=== PATIENT | female | born 1965 | race American Indian/Alaskan Native ===

== ENCOUNTER 2017-01-17 09:04 | Emergency (ER) | payer MEDICARE ==
[2017-01-17 09:47] LABS: Basophils % (Auto) 0.6 % (0.0-1.8); Eosinophils % (Auto) 2.9 % (0.0-4.3); Hematocrit 42.3 % (30.3-42.9); Hemoglobin 14.4 gm/dl (10.1-14.3); Mean Corpuscular HGB Conc 34 % (30-34); Mean Corpuscular Hemoglobin 31 pg (28-32); Mean Corpuscular Volume 90 fl (79-97); Platelet Count 258 K/mm3 (140-440); Red Blood Count 4.69 M/mm3 (3.65-5.03); Red Cell Distribution Width 12.9 % (13.2-15.2); White Blood Count 6.5 K/mm3 (4.5-11.0)
[2017-01-17 09:57] LABS: Bilirubin,Urine NEG (Negative); Blood,Urine NEG (Negative); Ketones,Urine TR mg/dL (Negative); Leukocyte Esterase,Urine NEG (Negative); Mucus,Urine FEW /HPF; Nitrite,Urine NEG (Negative); Protein,Urine <15 mg/dL mg/dL (Negative); Urobilinogen,Urine < 2.0 mg/dL (<2.0)
[2017-01-17 10:03] LABS: Alanine Aminotransferase 43 units/L (7-56); Albumin/Globulin Ratio 1.4 %; Anion Gap 20 mmol/L; BUN/Creatinine Ratio 17.27; Blood Urea Nitrogen 19 mg/dL (7-17); Calcium 9.5 mg/dL (8.4-10.2); Carbon Dioxide 25 mmol/L (22-30); Glucose 101 mg/dL (65-100); Lipase 39 units/L (13-60); Potassium 3.8 mmol/L (3.6-5.0); Sodium 145 mmol/L (137-145); Total Protein 6.9 g/dL (6.3-8.2)
[2017-01-17] MEDS ORDERED: NACL 0.9% 1000 ML 1,000 ML IV ONE (11:16)
[2017-01-17 11:31] LABS: Alkaline Phosphatase 88 units/L (35-129)
[2017-01-17] MEDS ORDERED: LIDOCAINE VISCOUS 2% PO ONE (11:50)
[2017-01-17] MEDS ORDERED: ALUM-MAG HYDROX-SIMETH 200-200-20MG/5ML PO ONE (11:50)
--- NOTE | 2017-01-17 11:53 | Emergency Department Report ---
ED Abdominal Pain HPI - General Chief Complaint: Abdominal Pain Stated Complaint: STOMACH HURT Time Seen by Provider: 01/17/17 11:15 Source: patient Mode of arrival: Ambulatory Limitations: No Limitations - History of Present Illness MD Complaint: abdominal pain -: Gradual Location: diffuse Radiation: none Migration to: no migration Severity scale (0 -10): 6 Quality: cramping Consistency: intermittent Improves With: nothing Worsens With: nothing Associated Symptoms: constipation. denies: nausea, vomiting, diarrhea, fever, chills, dysuria, hematemesis, hematochezia - Related Data Home Medications Medication Instructions Recorded Confirmed Last Taken Buprenorphine HCl/Naloxone HCl 1 film SL TID 10/04/15 10/04/15 10/04/15 08:00 [Suboxone 8 mg-2 mg SL Film] Previous Rx's Medication Instructions Recorded Last Taken Type Trazodone HCl 150 mg PO QHS #20 tablet 10/04/15 Unknown Rx buPROPion [Wellbutrin] 100 mg PO QDAY #30 tablet 10/04/15 Unknown Rx risperiDONE 1 mg PO BID #60 tablet 10/04/15 Unknown Rx Diclofenac Sodium 75 mg PO Q24HR #20 tablet. 01/17/17 Unknown Rx Allergies Allergy/AdvReac Type Severity Reaction Status Date / Time No Known Allergies Allergy Verified 01/17/17 09:08 ED Review of Systems ROS: Stated complaint: STOMACH HURT Other details as noted in HPI Constitutional: denies: chills, fever Eyes: denies: eye pain, eye discharge, vision change ENT: denies: ear pain, throat pain Respiratory: denies: cough, shortness of breath, wheezing Cardiovascular: denies: chest pain, palpitations Endocrine: no symptoms reported Gastrointestinal: denies: abdominal pain, nausea, diarrhea Genitourinary: denies: urgency, dysuria, discharge Musculoskeletal: denies: back pain, joint swelling, arthralgia Skin: denies: rash, lesions Neurological: denies: headache, weakness, paresthesias Psychiatric: denies: anxiety, depression Hematological/Lymphatic: denies: easy bleeding, easy bruising ED Past Medical Hx - Past Medical History Hx Hypertension: Yes Hx Psychiatric Treatment: Yes (BIPOLAR/ PARANOID SCHIZOPHRENIA / NARCOTIC ABUSE) - Surgical History Additional Surgical History: PARTIAL HYSTERECTOMY - Social History Smoking Status: Current Every Day Smoker - Medications Home Medications: Home Medications Medication Instructions Recorded Confirmed Last Taken Type Buprenorphine HCl/Naloxone HCl 1 film SL TID 10/04/15 10/04/15 10/04/15 08:00 History [Suboxone 8 mg-2 mg SL Film] Trazodone HCl 150 mg PO QHS #20 tablet 10/04/15 Unknown Rx buPROPion [Wellbutrin] 100 mg PO QDAY #30 tablet 10/04/15 Unknown Rx risperiDONE 1 mg PO BID #60 tablet 10/04/15 Unknown Rx Diclofenac Sodium 75 mg PO Q24HR #20 tablet. 01/17/17 Unknown Rx ED Physical Exam - General Limitations: No Limitations General appearance: alert, in no apparent distress - Head Head exam: Present: atraumatic, normocephalic - Eye Eye exam: Present: normal appearance - ENT ENT exam: Present: mucous membranes moist - Neck Neck exam: Present: normal inspection - Respiratory Respiratory exam: Present: normal lung sounds bilaterally. Absent: respiratory distress - Cardiovascular Cardiovascular Exam: Present: regular rate, normal rhythm. Absent: systolic murmur, diastolic murmur, rubs, gallop - GI/Abdominal GI/Abdominal exam: Present: soft, normal bowel sounds. Absent: distended, tenderness, guarding, rebound, rigid, hyperactive bowel sounds, hypoactive bowel sounds, organomegaly, mass, pulsatile mass - Extremities Exam Extremities exam: Present: normal inspection - Back Exam Back exam: Present: normal inspection - Neurological Exam Neurological exam: Present: alert, oriented X3 - Psychiatric Psychiatric exam: Present: normal affect, normal mood - Skin Skin exam: Present: warm, dry, intact, normal color. Absent: rash ED Course Vital Signs 01/17/17 09:08 Temperature 98.4 F Pulse Rate 84 Respiratory 18 Rate Blood Pressure 149/88 O2 Sat by Pulse 99 Oximetry ED Medical Decision Making - Lab Data Result diagrams: 01/17/17 09:21 01/17/17 09:21 - Medical Decision Making patient doing well here in there, tolerating po here in the er, labs negative , kub negative Will dc with proper follow up Critical care attestation.: If time is entered above; I have spent that time in minutes in the direct care of this critically ill patient, excluding procedure time. ED Disposition Clinical Impression: Abdominal pain Disposition: DISCHARGED TO HOME OR SELFCARE Is pt being admited?: No Does the pt Need Aspirin: No Condition: Good Instructions: Abdominal Pain (ED) Prescriptions: Diclofenac Sodium 75 mg PO Q24HR #20 tablet. Referrals: PRIMARY CARE, [Primary Care Provider] - 3-5 Days Forms: Work/School Release Form(ED) Time of Disposition: 13:47
--- NOTE | 2017-01-17 12:13 | XRay Report ---
ABDOMINAL SERIES THREE VIEWS: 01/17/17 09:04:00 CLINICAL: Abdominal pain. FINDINGS: Supine and upright views demonstrate a normal bowel gas pattern with a large volume of stool in the colon and in the rectum. No distended small bowel and no air-fluid levels. No pneumoperitoneum. No mass or suspicious calcifications. The bones and soft tissues are normal. IMPRESSION: Negative abdomen with abundant stool.
[2017-01-17 14:02] VITALS: BP 113/77
== END 2017-01-17 14:01 | disposition home or self-care (01) ==
LOC: ED 09:04
DX: R10.84 Generalized abdominal pain (principal); I10 Essential (primary) hypertension; F20.0 Paranoid schizophrenia; F31.9 Bipolar disorder, unspecified; Z90.711 Acquired absence of uterus with remaining cervical stump; F17.200 Nicotine dependence, unspecified, uncomplicated
CPT/HCPCS: 36415; 74020; 80053; 81001; 83690; 85025; 96360; 96361; 99284; J7030

== ENCOUNTER 2017-04-07 16:42 | Emergency (ER) | payer MEDICARE ==
[2017-04-07 17:17] VITALS: BP 129/84
--- NOTE | 2017-04-07 18:01 | Emergency Department Report ---
Chief Complaint: Abdominal Pain Stated Complaint: HEP C/SIDE PAIN Time Seen by Provider: 04/07/17 17:57 - HPI History of Present Illness: PT c/o L sided abd pain x 2 months pt states before she urinates, her abd pain increases PT states she had pap smear and US at [facility] but "they did not see anything" PT states she had labs and was dx with hepatitis C. PT States she follows up with GI on 04/12/17 - ROS Review of Systems: - n/v - dysuria - Exam Vital Signs: Vital Signs 04/07/17 17:14 Temperature 98 F Pulse Rate 88 Respiratory 18 Rate Blood Pressure 129/84 O2 Sat by Pulse 100 Oximetry Physical Exam: PT looks well, non toxic abd soft and non tender no cva tenderness michael MSE screening note: Focused history and physical exam performed. Due to findings the following was ordered: labs ED Disposition for MSE Condition: Stable Instructions: Abdominal Pain (ED) Referrals: PRIMARY CARE, [Primary Care Provider] - 3-5 Days
[2017-04-07 18:17] LABS: Bilirubin,Urine NEG (Negative); Blood,Urine NEG (Negative); Ketones,Urine NEG (Negative); Leukocyte Esterase,Urine MOD (Negative); Mucus,Urine FEW /HPF; Nitrite,Urine NEG (Negative); Protein,Urine <15 mg/dL mg/dL (Negative); Urobilinogen,Urine < 2.0 mg/dL (<2.0)
[2017-04-07 18:32] LABS: Basophils % (Auto) 0.6 % (0.0-1.8); Eosinophils % (Auto) 2.7 % (0.0-4.3); Hemoglobin 14.5 gm/dl (10.1-14.3); Mean Corpuscular HGB Conc 34 % (30-34); Mean Corpuscular Hemoglobin 30 pg (28-32); Mean Corpuscular Volume 90 fl (79-97); Platelet Count 287 K/mm3 (140-440); Red Blood Count 4.76 M/mm3 (3.65-5.03); Red Cell Distribution Width 13.2 % (13.2-15.2); White Blood Count 7.7 K/mm3 (4.5-11.0)
[2017-04-07 18:51] LABS: Alanine Aminotransferase 55 units/L (7-56); Albumin 4.2 g/dL (3.9-5); Albumin/Globulin Ratio 1.2 %; Alkaline Phosphatase 113 units/L (35-129); Anion Gap 18 mmol/L; Blood Urea Nitrogen 17 mg/dL (7-17); Calcium 9.7 mg/dL (8.4-10.2); Carbon Dioxide 24 mmol/L (22-30); Chloride 100.3 mmol/L (98-107); Glucose 91 mg/dL (65-100); Lipase 37 units/L (13-60); Potassium 4.2 mmol/L (3.6-5.0); Sodium 138 mmol/L (137-145); Total Protein 7.8 g/dL (6.3-8.2)
--- NOTE | 2017-04-07 21:14 | Emergency Department Report ---
HPI - General Chief Complaint: Abdominal Pain Time Seen by Provider: 04/07/17 17:57 - HPI HPI: This is a 51-year-old Afro-[place] female presents to the emergency department with a 1-2 month history of left-sided abdominal and flank pains. She denies any dysuria, hematuria, fever, nausea or vomiting. She recently was diagnosed with hepatitis C and she has a history of GERD. She also has a psychiatric history of bipolar disorder, schizophrenia and previous heroin/narcotic abuse. She is tried some ibuprofen for her discomfort without much relief. However the patient says that she currently has no discomfort at this time. She came in because she wanted to make sure that the intermittent pains that she has is not related to her hepatitis C. She also says that she had a abdominal and renal ultrasound about 2 weeks ago that did not show any abnormalities. Her primary care physician is Dr. Monroe. She has a gastroenterology appointment coming up on May 13. No recent travel or sick contacts at home. ED Past Medical Hx - Past Medical History Previous Medical History?: Yes Hx Hypertension: Yes Hx Psychiatric Treatment: Yes (BIPOLAR/ PARANOID SCHIZOPHRENIA / NARCOTIC ABUSE) Additional medical history: HEP C - Surgical History Past Surgical History?: Yes Additional Surgical History: PARTIAL HYSTERECTOMY - Social History Smoking Status: Current Every Day Smoker Substance Use Type: None - Medications Home Medications: Home Medications Medication Instructions Recorded Confirmed Last Taken Type Buprenorphine HCl/Naloxone HCl 1 film SL TID 10/04/15 10/04/15 10/04/15 08:00 History [Suboxone 8 mg-2 mg SL Film] Trazodone HCl 150 mg PO QHS #20 tablet 10/04/15 Unknown Rx buPROPion [Wellbutrin] 100 mg PO QDAY #30 tablet 10/04/15 Unknown Rx risperiDONE 1 mg PO BID #60 tablet 10/04/15 Unknown Rx Diclofenac Sodium 75 mg PO Q24HR #20 tablet. 01/17/17 Unknown Rx ED Review of Systems ROS: Stated complaint: HEP C/SIDE PAIN Other details as noted in HPI Comment: All other systems reviewed and negative Constitutional: denies: chills, fever Eyes: denies: eye pain, eye discharge, vision change ENT: denies: ear pain, throat pain Respiratory: denies: cough, shortness of breath, wheezing Cardiovascular: denies: chest pain, palpitations Gastrointestinal: abdominal pain. denies: nausea, vomiting Genitourinary: denies: urgency, dysuria, discharge Musculoskeletal: denies: back pain, joint swelling, arthralgia Skin: denies: rash, lesions Neurological: denies: headache, weakness, paresthesias Physical Exam - Physical Exam Vital Signs: Vital Signs 04/07/17 17:14 Temperature 98 F Pulse Rate 88 Respiratory 18 Rate Blood Pressure 129/84 O2 Sat by Pulse 100 Oximetry Physical Exam: GENERAL: The patient is well-developed well-nourished. HEENT: Normocephalic. Atraumatic. Extraocular motions are intact. Patient has moist mucous membranes. Pupils equal reactive to light bilaterally. NECK: Supple. Trachea is midline. CHEST/LUNGS: Clear to auscultation. There is no respiratory distress noted. HEART/CARDIOVASCULAR: Regular. There is no tachycardia. There is no gallop rub or murmur. ABDOMEN: Abdomen is soft, nontender. No guarding or rebound tenderness. Patient has normal bowel sounds. There is no abdominal distention. SKIN: There is no rash. There is no edema. There is no diaphoresis. NEURO: The patient is awake, alert, and oriented. The patient is cooperative. The patient has no focal neurologic deficits. The patient has normal speech. MUSCULOSKELETAL: There is no tenderness or deformity. There is no limitation range of motion. There is no evidence of acute injury. ED Course Vital Signs 04/07/17 17:14 Temperature 98 F Pulse Rate 88 Respiratory 18 Rate Blood Pressure 129/84 O2 Sat by Pulse 100 Oximetry ED Medical Decision Making - Lab Data Result diagrams: 04/07/17 18:17 04/07/17 18:17 - Medical Decision Making 51-year-old female with intermittent but chronic left-sided abdominal and flank pains. She came in as she was recently diagnosed with hepatitis C and wants to make sure is not related to these pains. However I have low suspicion that her left-sided flank pain is due to anything regarding her liver. On top of that she had a recent ultrasound of the abdomen and kidneys that did not show any abnormalities. Labs are unremarkable including no leukocytosis, electrolyte abnormalities, renal insufficiency. She has normal belly labs including lipase , LFTs and bilirubin. Urinalysis does not show any urinary tract infection or hematuria. Vital signs stable throughout her ED course. She has good follow- up with primary care. She will be discharged home to follow-up with her PCP. - Differential Diagnosis muscle strain, splenomegaly, nephrolithiasis, colitis Critical Care Time: No Critical care attestation.: If time is entered above; I have spent that time in minutes in the direct care of this critically ill patient, excluding procedure time. ED Disposition Clinical Impression: Left flank pain Abdominal pain Qualifiers: Abdominal location: left upper quadrant Qualified Code(s): R10.12 - Left upper quadrant pain Disposition: TO HOME OR SELFCARE Is pt being admited?: No Condition: Stable Instructions: Abdominal Pain (ED), Flank Pain (ED) Additional Instructions: Please follow-up with Dr. Monroe in the next few days. Return to the emergency department with any worsening of your symptoms or any acute distress. Referrals: ALOK MONROE MD [Staff Physician] - 3-5 Days Time of Disposition: 21:15
== END 2017-04-07 21:20 | disposition home or self-care (01) ==
LOC: ED 16:42
DX: R10.12 Left upper quadrant pain (principal); I10 Essential (primary) hypertension; F31.9 Bipolar disorder, unspecified; F20.0 Paranoid schizophrenia; F17.200 Nicotine dependence, unspecified, uncomplicated
CPT/HCPCS: 36415; 80053; 81001; 83690; 85025; 99283

== ENCOUNTER 2017-09-09 10:55 | Emergency (ER) | payer MEDICARE ==
[2017-09-09 11:15] VITALS: BP 135/93
[2017-09-09 11:49] LABS: Basophils % (Auto) 0.8 % (0.0-1.8); Eosinophils % (Auto) 2.9 % (0.0-4.3); Hematocrit 39.5 % (30.3-42.9); Hemoglobin 13.5 gm/dl (10.1-14.3); Mean Corpuscular HGB Conc 34 % (30-34); Mean Corpuscular Hemoglobin 31 pg (28-32); Mean Corpuscular Volume 91 fl (79-97); Platelet Count 227 K/mm3 (140-440); Red Blood Count 4.36 M/mm3 (3.65-5.03); Red Cell Distribution Width 12.5 % (13.2-15.2); White Blood Count 5.7 K/mm3 (4.5-11.0)
[2017-09-09 12:08] LABS: Anion Gap 19 mmol/L; BUN/Creatinine Ratio 17; Blood Urea Nitrogen 19 mg/dL (7-17); Calcium 9.4 mg/dL (8.4-10.2); Carbon Dioxide 21 mmol/L (22-30); Chloride 105.5 mmol/L (98-107); Glucose 113 mg/dL (65-100); Potassium 3.9 mmol/L (3.6-5.0); Sodium 142 mmol/L (137-145)
== END 2017-09-09 18:54 | disposition left against medical advice (07) ==
LOC: ED 10:55
DX: R07.9 Chest pain, unspecified (principal); Z53.21 Procedure and treatment not carried out due to patient leaving prior to being seen by health care provider
CPT/HCPCS: 36415; 80048; 84484; 85025; 93005; 93010